=== PATIENT | female | born 1945 | race Caucasian/White ===

== ENCOUNTER 2019-05-17 15:05 | Emergency (ER) | payer OTHER ==
[~2019-05-17] VITALS: Ht 162.5 cm; Wt 87.5 kg
[2019-05-17] MEDS ORDERED: KEFLEX500 M1 PO (16:25)
[2019-05-17] MEDS ORDERED: NORCO 10-325 T1 EACH PO (16:29)
== END 2019-05-17 16:39 | disposition home or self-care (01) ==
LOC: ED 15:05
DX: S81.811A Laceration without foreign body, right lower leg, initial encounter (principal); W45.8XXA Other foreign body or object entering through skin, initial encounter; Y93.89 Activity, other specified; Y92.89 Other specified places as the place of occurrence of the external cause; Y99.8 Other external cause status